=== PATIENT | male | born 1955 | race Caucasian/White ===

== ENCOUNTER 2017-11-07 06:45 | Observation (INO) | payer BC ==
[2017-11-07] MEDS: morphine 4 MG/ML VIAL IV (07:24)
[2017-11-07] MEDS: ONDANSETRON 4 MG INJ IV (07:24)
[2017-11-07] MEDS: NITROGLYCERIN 2% 1 GM OINT PKT TD (07:25)
[2017-11-07 07:44] LABS: ADD MAN DIFF? NO
[2017-11-07 07:49] LABS: BASOPHILS % 0.5 % (0.0-2.0); EOSINOPHILS # 0.1 10^3/ul (0.0-0.5); EOSINOPHILS % 1.4 % (0.0-7.0); HEMATOCRIT 38.1 % (42.0-52.0); HEMOGLOBIN 12.4 g/dl (14.0-18.0); LYMPHOCYTES # 1.7 10^3/ul (0.8-2.9); LYMPHOCYTES % 29.7 % (15.0-51.0); MEAN CORPUSCULAR HGB CONC 32.5 g/dl (32.0-37.0); MEAN CORPUSCULAR VOLUME 92.3 fl (82.0-101.0); MEAN PLATELET VOLUME 9.9 fl (7.4-10.4); MONOCYTE # 0.6 10^3/ul (0.3-0.9); MONOCYTES % 9.7 % (0.0-11.0); NEUTROPHIL # 3.3 10^3/ul (1.6-7.5); NEUTROPHILS % 57.2 % (39.0-77.0); PLATELET COUNT 231 10^3/UL (140-415); RED BLOOD COUNT 4.13 10^6/ul (4.70-6.10); RED CELL DISTRIBUTION WIDTH 13.5 % (11.5-14.5)
[2017-11-07 07:49] LABS: WHITE BLOOD COUNT 5.9 10^3/ul (4.8-10.8)
[2017-11-07 08:08] LABS: ANION GAP 14 (8-16); BLOOD UREA NITROGEN 19 mg/dl (7-20); CALCIUM 9.8 mg/dl (8.4-10.2); CARBON DIOXIDE 28 mmol/L (21-31); CHLORIDE 106 mmol/L (97-110); CREATININE 0.84 mg/dl (0.61-1.24); GLUCOSE 147 mg/dl (70-220); SODIUM 143 mmol/L (135-144)
[2017-11-07 08:13] LABS: POTASSIUM 5.2 mmol/L (3.5-5.1)
[2017-11-07] MEDS ORDERED: ONDANSETRON 4 MG INJ IV ×2 (09:30→10:30)
[2017-11-07] MEDS: ACETAMINOPHEN 325 MG TAB PO ×2 (10:09→11:22)
[2017-11-07] MEDS ORDERED: ACETAMINOPHEN 325 MG TAB PO (10:30)
[2017-11-07] MEDS ORDERED: NACL 0.9% 3 ML SYG IV (10:30)
[2017-11-07] MEDS ORDERED: HYDROCODONE/APAP (5/325) TAB PO (10:30)
[2017-11-07] MEDS: INSULIN ASPART [NOVOLOG] 3 ML PEN SC ×3 (12:00→21:00)
[2017-11-07 12:48] LABS: HEMOGLOBIN A1C 6.6 % (0-5.9)
[2017-11-07 12:53] LABS: B-TYPE NATRIURETIC PEPTIDE 139 PG/ML (0-125)
[2017-11-07] MEDS: IOHEXOL 350MG/ML 50 ML BTL (13:41)
[2017-11-07 14:10] LABS: CREATINE KINASE 61 IU/L (23-200)
[2017-11-07] MEDS: ISOSORBIDE DINITRATE 10 MG TAB PO ×2 (14:16→21:00)
[2017-11-07 15:09] LABS: CK INDEX 1.4
[2017-11-07 15:11] LABS: CK-MB 0.85 ng/ml (0.0-2.4); TROPONIN-I < 0.012 ng/ml (0.00-0.12)
[2017-11-07] MEDS: SOD CHLORIDE 0.9% 100 ML (15:45)
[2017-11-07] MEDS: IOHEXOL 100 ML (15:45)
[2017-11-07] MEDS: NITROGLYCERIN AEROSOL (4.9 GM) (16:39)
[2017-11-07] MEDS ORDERED: metFORMIN 500 MG TAB PO (18:00)
[2017-11-07 19:13] LABS: CREATINE KINASE 57 IU/L (23-200)
[2017-11-07 19:22] LABS: CK INDEX 1.6
[2017-11-07 19:24] LABS: CK-MB 0.93 ng/ml (0.0-2.4); TROPONIN-I < 0.012 ng/ml (0.00-0.12)
[2017-11-07] MEDS: ATORVASTATIN 20 MG TAB PO (21:00)
[2017-11-07] MEDS: RANOLAZINE (SR) 500 MG TAB PO (21:00)
[2017-11-08 06:07] LABS: ADD MAN DIFF? NO
[2017-11-08 06:21] LABS: WHITE BLOOD COUNT 5.4 10^3/ul (4.8-10.8)
[2017-11-08 06:21] LABS: BASOPHILS % 0.4 % (0.0-2.0); EOSINOPHILS # 0.1 10^3/ul (0.0-0.5); EOSINOPHILS % 1.5 % (0.0-7.0); HEMATOCRIT 38.8 % (42.0-52.0); HEMOGLOBIN 12.6 g/dl (14.0-18.0); LYMPHOCYTES # 1.8 10^3/ul (0.8-2.9); LYMPHOCYTES % 32.5 % (15.0-51.0); MEAN CORPUSCULAR HEMOGLOBIN 29.9 pg (29.0-33.0); MEAN CORPUSCULAR HGB CONC 32.5 g/dl (32.0-37.0); MEAN CORPUSCULAR VOLUME 91.9 fl (82.0-101.0); MEAN PLATELET VOLUME 9.8 fl (7.4-10.4); MONOCYTE # 0.5 10^3/ul (0.3-0.9); MONOCYTES % 9.1 % (0.0-11.0); PLATELET COUNT 221 10^3/UL (140-415); RED BLOOD COUNT 4.22 10^6/ul (4.70-6.10); RED CELL DISTRIBUTION WIDTH 13.5 % (11.5-14.5)
[2017-11-08 06:32] LABS: CHOL/HDL RATIO 3.4 RATIO; CHOLESTEROL 148 mg/dl (100-200); HDL CHOLESTEROL 43 mg/dl (30-78); LDL CHOLESTEROL,CALCULATED 70 mg/dl; MAGNESIUM 1.5 mg/dl (1.7-2.5); TRIGLYCERIDES 177 mg/dl (0-149)
[2017-11-08 06:32] LABS: PHOSPHORUS 4.7 mg/dl (2.5-4.9)
[2017-11-08 06:33] LABS: ALANINE AMINOTRANSFERASE 48 IU/L (13-69); ALBUMIN/GLOBULIN RATIO 1.25; ALKALINE PHOSPHATASE 37 IU/L (42-121); ANION GAP 15 (8-16); ASPARTATE AMINO TRANSFERASE 31 IU/L (15-46); BILIRUBIN,INDIRECT 0.2 mg/dl (0-1.1); BILIRUBIN,TOTAL 0.2 mg/dl (0.2-1.3); BLOOD UREA NITROGEN 18 mg/dl (7-20); CALCIUM 9.8 mg/dl (8.4-10.2); CARBON DIOXIDE 28 mmol/L (21-31); CHLORIDE 105 mmol/L (97-110); CREATININE 0.86 mg/dl (0.61-1.24); GLUCOSE 149 mg/dl (70-220); POTASSIUM 4.9 mmol/L (3.5-5.1); SODIUM 143 mmol/L (135-144); TOTAL PROTEIN 7.2 g/dl (6.1-8.1)
[2017-11-08 06:41] LABS: INR 0.89; PROTIME 12.1 Sec (11.9-14.9); PT RATIO 0.9
[2017-11-08 06:42] LABS: PARTIAL THROMBOPLASTIN TIME 26.5 Sec (25.0-35.0)
[2017-11-08] MEDS: INSULIN ASPART [NOVOLOG] 3 ML PEN SC ×2 (07:35→11:45)
[2017-11-08] MEDS: RANOLAZINE (SR) 500 MG TAB PO (08:21)
[2017-11-08] MEDS: FENOFIBRATE 145 MG TAB PO (08:22)
[2017-11-08] MEDS: ISOSORBIDE DINITRATE 10 MG TAB PO (08:22)
[2017-11-08] MEDS: LISINOPRIL 20 MG TAB PO (08:22)
[2017-11-08] MEDS: ASPIRIN (EC) 81 MG TAB PO (08:22)
[2017-11-08] MEDS: ENOXAPARIN 40 MG/0.4 ML SYG SC (08:25)
[2017-11-08] MEDS ORDERED: NON-FORMULARY/PATIENT OWN MED (Fenofibrate, Micronized (Fenofibrate) 134 MG) PO (09:00)
[2017-11-08] MEDS ORDERED: PRASUGREL HCL 5 MG TABLET PO (09:00)
[2017-11-08] MEDS ORDERED: SAXAGLIPTIN HYDROCHLORIDE 5 MG TAB PO (09:00)
[2017-11-08] MEDS: LINAGLIPTIN 5 MG TABLET PO (09:27)
[2017-11-08] MEDS: MAGNESIUM SULFATE 3 GM in DEXTROSE 5% 100 ML IVPB (09:27)
== END 2017-11-08 12:57 | disposition home or self-care (01) ==
LOC: E/R 06:45 → MS3 09:21
DX: R07.9 Chest pain, unspecified (principal); I25.10 Atherosclerotic heart disease of native coronary artery without angina pectoris; Z95.1 Presence of aortocoronary bypass graft; I10 Essential (primary) hypertension; E78.00 Pure hypercholesterolemia, unspecified; E78.5 Hyperlipidemia, unspecified; D64.9 Anemia, unspecified; E11.9 Type 2 diabetes mellitus without complications; Z79.82 Long term (current) use of aspirin; Z79.84 Long term (current) use of oral hypoglycemic drugs; Z82.49 Family history of ischemic heart disease and other diseases of the circulatory system
CPT/HCPCS: 36415; 71045; 75574; 80048; 80053; 80061; 82550; 82553; 82962; 83036; 83735; 83880; 84100; 84484; 85025; 85610; 85730; 93005; 93306; 96374; 96375; 99285-25

== ENCOUNTER 2018-08-10 19:56 | Observation (INO) | payer BC ==
[2018-08-10 21:25] LABS: ADD MAN DIFF? NO
[2018-08-10 21:27] LABS: WHITE BLOOD COUNT 6.5 10^3/ul (4.8-10.8)
[2018-08-10 21:27] LABS: BASOPHILS % 0.5 % (0.0-2.0); EOSINOPHILS # 0.2 10^3/ul (0.0-0.5); EOSINOPHILS % 2.6 % (0.0-7.0); HEMATOCRIT 37.3 % (42.0-52.0); LYMPHOCYTES # 2.4 10^3/ul (0.8-2.9); LYMPHOCYTES % 36.3 % (15.0-51.0); MEAN CORPUSCULAR HEMOGLOBIN 29.2 pg (29.0-33.0); MEAN CORPUSCULAR HGB CONC 32.2 g/dl (32.0-37.0); MEAN CORPUSCULAR VOLUME 90.8 fl (82.0-101.0); MEAN PLATELET VOLUME 9.4 fl (7.4-10.4); MONOCYTE # 0.6 10^3/ul (0.3-0.9); MONOCYTES % 9.5 % (0.0-11.0); NEUTROPHIL # 3.2 10^3/ul (1.6-7.5); NEUTROPHILS % 49.6 % (39.0-77.0); PLATELET COUNT 222 10^3/UL (140-415); RED BLOOD COUNT 4.11 10^6/ul (4.70-6.10); RED CELL DISTRIBUTION WIDTH 13.6 % (11.5-14.5)
[2018-08-10 21:43] LABS: INR 0.88; PARTIAL THROMBOPLASTIN TIME 26.3 Sec (23.0-35.0); PT RATIO 0.9
[2018-08-10 21:44] LABS: ANION GAP 7 (5-13); BLOOD UREA NITROGEN 21 mg/dl (7-20); CARBON DIOXIDE 25 mmol/L (21-31); CHLORIDE 108 mmol/L (97-110); CREATININE 0.88 mg/dl (0.61-1.24); Estimated GFR > 60 mL/min (>60); GLUCOSE 111 mg/dl (70-220); POTASSIUM 4.5 mmol/L (3.5-5.1); SODIUM 140 mmol/L (135-144)
[2018-08-10 21:56] LABS: B-TYPE NATRIURETIC PEPTIDE 49 PG/ML (0-125); TROPONIN-I < 0.012 ng/ml (0.000-0.120)
[2018-08-10] MEDS: ASPIRIN 325 MG TAB PO (22:24)
[2018-08-10] MEDS: NITROGLYCERIN 2% 1 GM OINT PKT TD (22:27)
[2018-08-10] MEDS ORDERED: NITROGLYCERIN (SL) 0.4 MG TAB SL (22:30)
[2018-08-10] MEDS ORDERED: NACL 0.9% 3 ML SYG IV (22:30)
[2018-08-10] MEDS ORDERED: morphine 2 MG INJ IV (22:30)
[2018-08-10] MEDS ORDERED: ACETAMINOPHEN 325 MG TAB PO (22:30)
[2018-08-10] MEDS ORDERED: ONDANSETRON 4 MG INJ IV (22:30)
[2018-08-11 03:18] LABS: CREATINE KINASE 54 IU/L (23-200)
[2018-08-11 03:30] LABS: CK INDEX 1.5; CK-MB 0.82 ng/ml (0.0-2.4); TROPONIN-I < 0.012 ng/ml (0.000-0.120)
[2018-08-11 05:40] LABS: ADD MAN DIFF? NO
[2018-08-11 05:44] LABS: WHITE BLOOD COUNT 6.3 10^3/ul (4.8-10.8)
[2018-08-11 05:44] LABS: BASOPHILS % 0.3 % (0.0-2.0); EOSINOPHILS # 0.2 10^3/ul (0.0-0.5); EOSINOPHILS % 2.4 % (0.0-7.0); HEMATOCRIT 37.2 % (42.0-52.0); HEMOGLOBIN 11.7 g/dl (14.0-18.0); LYMPHOCYTES # 1.8 10^3/ul (0.8-2.9); LYMPHOCYTES % 29.1 % (15.0-51.0); MEAN CORPUSCULAR HEMOGLOBIN 28.9 pg (29.0-33.0); MEAN CORPUSCULAR HGB CONC 31.5 g/dl (32.0-37.0); MEAN CORPUSCULAR VOLUME 91.9 fl (82.0-101.0); MEAN PLATELET VOLUME 9.7 fl (7.4-10.4); MONOCYTE # 0.6 10^3/ul (0.3-0.9); MONOCYTES % 9.9 % (0.0-11.0); NEUTROPHIL # 3.6 10^3/ul (1.6-7.5); NEUTROPHILS % 56.7 % (39.0-77.0); PLATELET COUNT 198 10^3/UL (140-415); RED BLOOD COUNT 4.05 10^6/ul (4.70-6.10); RED CELL DISTRIBUTION WIDTH 13.7 % (11.5-14.5)
[2018-08-11 05:56] LABS: HEMOGLOBIN A1C 7.5 % (0-5.9)
[2018-08-11 06:24] LABS: ALANINE AMINOTRANSFERASE 30 IU/L (13-69); ALBUMIN 4.1 g/dl (3.3-4.9); ALBUMIN/GLOBULIN RATIO 1.28; ALKALINE PHOSPHATASE 36 IU/L (42-121); ANION GAP 7 (5-13); ASPARTATE AMINO TRANSFERASE 27 IU/L (15-46); BILIRUBIN,INDIRECT 0.1 mg/dl (0-1.1); BILIRUBIN,TOTAL 0.1 mg/dl (0.2-1.3); BLOOD UREA NITROGEN 20 mg/dl (7-20); CALCIUM 9.7 mg/dl (8.4-10.2); CARBON DIOXIDE 25 mmol/L (21-31); CHLORIDE 108 mmol/L (97-110); CHOL/HDL RATIO 4.2 RATIO; CHOLESTEROL 148 mg/dl (100-200); CREATININE 0.83 mg/dl (0.61-1.24); Estimated GFR > 60 mL/min (>60); GLUCOSE 132 mg/dl (70-220); HDL CHOLESTEROL 35 mg/dl (30-78); LDL CHOLESTEROL,CALCULATED 80 mg/dl; MAGNESIUM 1.5 mg/dl (1.7-2.5); POTASSIUM 4.7 mmol/L (3.5-5.1); SODIUM 140 mmol/L (135-144); TOTAL PROTEIN 7.3 g/dl (6.1-8.1); TRIGLYCERIDES 163 mg/dl (0-149)
[2018-08-11] MEDS: LISINOPRIL 20 MG TAB PO (09:00)
[2018-08-11] MEDS: RANOLAZINE (SR) 500 MG TAB PO (09:00)
[2018-08-11] MEDS: FENOFIBRATE 145 MG TAB PO (09:43)
[2018-08-11] MEDS: ISOSORBIDE DINITRATE 20 MG TAB PO ×2 (09:44→12:42)
[2018-08-11] MEDS: ASPIRIN (EC) 81 MG TAB PO (09:45)
[2018-08-11 10:03] LABS: CREATINE KINASE 55 IU/L (23-200)
[2018-08-11 10:08] LABS: CK INDEX 1.4; CK-MB 0.75 ng/ml (0.0-2.4); TROPONIN-I < 0.012 ng/ml (0.000-0.120)
[2018-08-11] MEDS ORDERED: GLUCOSE GEL 15 GRAM TUBE BUCCAL (14:00)
[2018-08-11] MEDS ORDERED: DEXTROSE 50% 50 ML SYRINGE IV ×2 (14:00)
[2018-08-11] MEDS ORDERED: GLUCAGON 1 MG INJ IM (14:00)
[2018-08-11] MEDS ORDERED: GLUCOSE GEL 15 GRAM TUBE PO ×2 (14:00)
[2018-08-11] MEDS: INSULIN ASPART [NOVOLOG] 3 ML PEN SC (14:22)
[2018-08-11] MEDS ORDERED: INSULIN ASPART [NOVOLOG] 3 ML PEN SC (17:35)
[2018-08-11] MEDS ORDERED: ATORVASTATIN 20 MG TAB PO (21:00)
== END 2018-08-11 18:01 | disposition home or self-care (01) ==
LOC: E/R 19:56 → MS3 22:16
DX: R07.9 Chest pain, unspecified (principal); I25.10 Atherosclerotic heart disease of native coronary artery without angina pectoris; I10 Essential (primary) hypertension; E11.9 Type 2 diabetes mellitus without complications; E78.5 Hyperlipidemia, unspecified; D64.9 Anemia, unspecified; I73.9 Peripheral vascular disease, unspecified; Z95.1 Presence of aortocoronary bypass graft; Z79.84 Long term (current) use of oral hypoglycemic drugs; Z79.82 Long term (current) use of aspirin
CPT/HCPCS: 36415; 71045; 80048; 80053; 80061; 82550; 82553; 82962; 83036; 83735; 83880; 84443; 84484; 85025; 85610; 85730; 93005; 93306; 99285-25